=== PATIENT | female | born 1950 | race Caucasian/White ===

== ENCOUNTER → 2016-08-20 | Outpatient (CLI) | payer OTHER ==
[~2016-08-20] MED LIST: ALLEGRA ALLERGY60 MG PO; ALLEGRA30 MG/5 ML PO; COREG3.125 M1 PO; ENTRESTO 24 MG1 EACH PO; GERITOL COMPLET1 TA1 PO; LEVOTHYROXINE100 MCG PO; MULTI VITAMIN1 EACH PO; PERPHENAZINE2 MG PO
--- NOTE | ~2016-08-20 | EKG ---
PATIENT: DEVI RAND UNIT #: [id number] Ventricular Rate: 70 BPM Atrial Rate: 70 BPM P-R Interval: 164 ms QRS Duration: 136 ms Q-T Interval: 452 ms QTC Calculation(Bezet): 488 ms P [place]: 26 degrees Calculated R [place]: -32 degrees Calculated T [place]: 74 degrees Diagnosis Line: Normal sinus rhythm Diagnosis Line: Left axis deviation Diagnosis Line: Left bundle branch block Diagnosis Line: Abnormal ECG Diagnosis Line: No previous ECGs available Diagnosis Line: Confirmed by PORTER CAVANAUGH MD ([id number]) on 08/20/2016 Diagnosis Line: 5:31:31 PM INTERPRETING MD: AFSHAN REYES
[2016-08-20 11:32] LABS: HEMATOCRIT 42.5 % (35.0-45.0); HEMOGLOBIN 14.3 gm/dL (12.0-16.0); MEAN CELL VOLUME 85.4 FL (83-96); MEAN CORPUSCULAR HEMOGLOBIN 28.7 PG (28-34); MEAN CORPUSCULAR HGB CONC 33.6 g/dL (30-36); MEAN PLATELET VOLUME 7.4 FL (6.5-11.5); RED BLOOD COUNT 4.97 X10e (3.90-5.30); RED CELL DISTRIBUTION WIDTH 13.5 % (11.0-15.5); WHITE BLOOD COUNT 6.1 X10e3 (4.0-10.5)
[2016-08-20 12:00] LABS: BUN/CREATININE RATIO 16.36; CALCIUM SERUM 9.7 mg/dL (8.4-10.2); CREATININE SERUM 1.1 mg/dL (0.6-1.4); POTASSIUM 4.5 mmol/L (3.5-5.1)
[2016-08-20 12:15] LABS: PARTIAL THROMBOPLASTIN TIME 27.4 SECONDS (23.5-31.3); PROTHROMBIN TIME (PATIENT) 10.3 SECONDS (9.6-11.5)
== END | disposition home or self-care (01) ==
LOC: CCVL 10:42
PROVIDERS: Internal Medicine Cardiovascular Disease
DX: I42.8 Other cardiomyopathies (principal); I44.7 Left bundle-branch block, unspecified; R94.31 Abnormal electrocardiogram [ECG] [EKG]; E03.9 Hypothyroidism, unspecified; K21.9 Gastro-esophageal reflux disease without esophagitis; Z82.49 Family history of ischemic heart disease and other diseases of the circulatory system; Z83.3 Family history of diabetes mellitus
CPT/HCPCS: 36415; 80048; 85027; 85610; 85730; 93005; C1769; C1887; C1894; J1644; J2250; J3010

== ENCOUNTER → 2016-09-06 | Day surgery (SDC) | payer OTHER ==
--- NOTE | ~2016-09-06 | OR ---
Unit #: [id number] #: [id number] Patient: DEVI RAND [id number] [address] [address] [id number] MR#: [id number] NAME: DEVI RAND ROOM: Date of Procedure: 09/06/2016 Admission Date: 09/06/2016 Surgeon: Pete Marquez M.D. : 1950 Attending Physician: Pete Marquez M.D. Referring Physician: Pete Marquez M.D. Primary Care Physician: Roberto Mccall M.D. OPERATIVE REPORT PREOPERATIVE DIAGNOSIS Screening colonoscopy. POSTOPERATIVE DIAGNOSIS Screening colonoscopy. PROCEDURE PERFORMED Colonoscopy to cecum. ANESTHESIA Monitored anesthesia care. FINDINGS The patient was found to have moderate internal hemorrhoids and a single right-sided diverticulum. SPECIMENS None. COMPLICATIONS None apparent. CONDITION The patient tolerated the procedure well. INDICATIONS FOR PROCEDURE The patient is a 66-year-old white female, who has never had a screening colonoscopy performed. She presents at this time for evaluation by colonoscopy. DESCRIPTION OF PROCEDURE After obtaining informed consent, the patient was brought to the endoscopy suite and after adequate monitored anesthesia care, had the colonoscope placed through the anus and slowly advanced to level of the cecum without difficulty with the lumen always in view. The cecum was normal as was the ileocecal valve. The ascending colon was normal except for a single right-sided diverticulum. The hepatic flexure was normal as was the transverse colon, splenic flexure, descending colon, sigmoid colon, and rectum. On retroflexing in the rectum to the anorectal junction, the patient was found to have some moderate internal hemorrhoids. The scope was removed without difficulty. On digital examination, there was good sphincter tone. No masses palpable. The patient went from the endoscopy Unit #: [id number] #: [id number] Patient: DEVI RAND suite to the recovery area in stable condition. RECOMMENDATIONS Diverticular sheet given. High-fiber diet, lots of liquids, tucks or wipes p.r.n. Follow up p.r.n. Dictated by... Bubba Wan/mere TD: 09/06/2016 13:24 JOB #: [id number] CC: [facility] Roberto Mccall M.D. OPERATIVE REPORT X Pete Marquez MD PROCEDURE OPERATIVE NOTE
== END | disposition home or self-care (01) ==
LOC: COPS 09:54
PROVIDERS: Surgery
PROC: 0DJD8ZZ Inspection of Lower Intestinal Tract, Via Natural or Artificial Opening Endoscopic (ICD-10-PCS; principal; 2016-09-06 13:00)
DX: Z12.11 Encounter for screening for malignant neoplasm of colon (principal); K64.8 Other hemorrhoids; K57.30 Diverticulosis of large intestine without perforation or abscess without bleeding; Z80.0 Family history of malignant neoplasm of digestive organs; E03.9 Hypothyroidism, unspecified; I42.9 Cardiomyopathy, unspecified; J43.9 Emphysema, unspecified; D64.9 Anemia, unspecified; M19.90 Unspecified osteoarthritis, unspecified site; Z79.899 Other long term (current) drug therapy; Z87.440 Personal history of urinary (tract) infections; Z87.01 Personal history of pneumonia (recurrent); Z88.2 Allergy status to sulfonamides; Z91.040 Latex allergy status
CPT/HCPCS: J2250

== ENCOUNTER → 2016-12-27 | Outpatient (CLI) | payer OTHER ==
--- NOTE | ~2016-12-27 | MY29 ---
[facility] A Service of [facility] RADIOLOGY TEXT RESULTS PATIENT: DEVI RAND LOCATION: [facility] : [birth year] UNIT #: [id number] AGE: [address]: Roberto Mccall MD SEX: F ORDER DR: [id number] [facility] [address] [place], [place] [address] [id number] O MR#: [id number] Acc #: [id number] NAME: DEVI RAND. : 1950 SEX: F STUDY DATE/TIME: 12/27/2016 12:31 UNIT: [facility] ROOM: STUDY DESCRIPTION: MY [place] SCREENING W/ CAD BILAT Attending Physician: Roberto Mccall M.D. Referring Physician: Roberto Mccall M.D. Ordering Physician: Roberto Mccall M.D. Primary Care Physician: Roberto Mccall M.D. MEDICAL IMAGING REPORT This report is preliminary unless electronic signature is present EXAM Bilateral digital screening mammogram 12/27/2016 HISTORY 66-year-old woman, no risk elevation. Annual screening. COMPARISON STUDIES 12/09/2014, 12/25/2015. FINDINGS Digital imaging of each breast was completed utilizing screening protocol. Review includes FDA-approved CAD device. Breast parenchyma is moderately dense with a nodular pattern, stable bilaterally. There are occasional benign calcifications in each breast. I see no suspicious mass characteristics. There are no interval occurring calcifications and no architectural deformity. IMPRESSION Stable benign mammogram. Annual screening recommended. BIRADS: 2 Benign Finding. Patients over the age of 40 are entered into a reminder system with target due date for the next mammogram. A result letter will also be sent to the patient. Dictated by... Hermes Elena M.D. THIS IS AN ELECTRONICALLY VERIFIED REPORT Hermes Elena M.D. at 12/29/2016 8:06 AM [facility] A Service of [facility] RADIOLOGY TEXT RESULTS PATIENT: DEVI RAND LOCATION: [facility] : 52 UNIT #: [id number] AGE: [address]: Roberto Mccall MD SEX: F ORDER DR: CHAGO/polina TD: 12/27/2016 22:37 JOB #: [id number] MEDICAL IMAGING REPORT Page 1 of 1 COPY
== END | disposition home or self-care (01) ==
LOC: CWCC 12:12
DX: Z12.31 Encounter for screening mammogram for malignant neoplasm of breast (principal)
CPT/HCPCS: G0202